=== PATIENT | male | born 1960 | race Two or more races ===

== ENCOUNTER 2018-03-18 12:16 | Day surgery (SDC) | payer OTHER | END 2018-03-18 17:18 | disposition home or self-care (01) | LOC: GIL 12:16 | DX: Z12.11 Encounter for screening for malignant neoplasm of colon (principal); D12.3 Benign neoplasm of transverse colon; K64.8 Other hemorrhoids; E78.5 Hyperlipidemia, unspecified; E66.9 Obesity, unspecified; Z68.34 Body mass index [BMI] 34.0-34.9, adult; I10 Essential (primary) hypertension | CPT/HCPCS: 45380; 88305 ==